=== PATIENT | male | born 1975 | race Caucasian/White ===

== ENCOUNTER 2022-11-22 12:37 | Emergency (ER) | payer BC ==
[2022-11-22 13:19] VITALS: PULSE 92; RESP 18; TEMP 97; O2SAT 93
[2022-11-22] MEDS ORDERED: Sodium Chloride 0.9% 1000 ML 1,000 ML ONE ×2 (13:28→14:40)
--- NOTE | 2022-11-22 13:42 | XRAY ---
Indication: Short of breath. Illness. Comparison: None Portable chest inflated and clear. Heart not enlarged for AP portable technique. Bony thorax intact with mild degenerative changes. Impression: Nonacute chest.
[2022-11-22] MEDS: Sodium Chloride 0.9% 1000 ML 1,000 ML IV STA ×2 (13:45→14:44)
[2022-11-22 13:55] LABS: Absolute Neutrophil Ct (ANC) 8.12 x10^3/uL (1.4-6.9); BASOPHIL % 0.4 % (0.0-0.4); Basophil (Absolute #) 0.04 x10^3/uL (0-0.4); Eosinophil % 0.5 % (0.00-5.0); Eosinophil (Absolute #) 0.05 x10^3/uL (0-0.5); Hematocrit 38.2 % (42-50); Hemoglobin 12.5 g/dL (12.5-18.0); IMMATURE GRAN # 0.15 x10^3u/L (0.00-0.03); IMMATURE GRAN % 1.4 % (0.00-0.4); Lymphocyte (Absolute #) 1.06 x10^3/uL (1.0-4.6); Mean Corpuscular Hemoglobin 28.8 pg (26-32); Mean Corpuscular Hgb Concent. 32.7 g/dL (32-36); Mean Platelet Volume 8.9 fL (7.5-11.0); Monocyte (Absolute #) 1.13 x10^3/uL (0.0-1.3); Monocytes % 10.7 % (0.0-12.0); Platelet Count 361 x10^3/uL (150-450); Red Blood Count 4.34 x10^6/uL (4.1-5.6); Red Cell Distribution Width 13.2 % (11.5-14.0); White Blood Count 10.6 x10^3/uL (4.0-10.5)
[2022-11-22] MEDS ORDERED: TORAdol 30 mg Injection ONE (13:57)
[2022-11-22 14:09] LABS: ALBUMIN 3.4 g/dL (3.5-5.0); ALKALINE PHOSPHATASE 161 U/L (38-126); AMYLASE 51 U/L (30-110); BLOOD UREA NITROGEN 8 mg/dL (9-20); CHLORIDE 95 mmol/L (98-107); Calcium 8.9 mg/dL (8.4-10.2); Carbon Dioxide 29 mmol/L (22-30); Creatinine 1 0.86 mg/dL (0.66-1.25); EST GLOMERULAR FILTRATION RATE > 60.0 ML/MIN; Glucose 375 mg/dL (74-106); LIPASE 174 U/L (23-300); Potassium 3.5 mmol/L (3.5-5.1); SGOT/AST 36 U/L (17-59); SGPT/ALT 34 U/L (0-50); SODIUM 136 mmol/L (137-145); Total Protein 7.1 g/dL (6.3-8.2)
[2022-11-22] MEDS: TORAdol 30 mg Injection IV ONE (14:09)
[2022-11-22] MEDS ORDERED: CLINDAMYCIN-D5W 900 MG/50 ML*** 900 MG/50 ML BAG IV ONE (14:39)
[2022-11-22 14:41] LABS: INFLUENZA A NEGATIVE (NEGATIVE); INFLUENZA B NEGATIVE (NEGATIVE); RESPIRATORY SYNCTIAL VIRUS NEGATIVE (NEGATIVE); SARS-CoV-2 Xpert Express NEGATIVE (NEGATIVE)
[2022-11-22] MEDS: CLINDAMYCIN-D5W 900 MG/50 ML*** 900 MG/50 ML BAG IV STA (14:44)
[2022-11-22 15:01] LABS: Appearance Clear (Clear); Bacteria None Seen /HPF (None Seen); Bilirubin Negative (Negative); Blood Negative (Negative); Epithelial Cells Rare /HPF (None Seen); Glucose, Urine >=1000 mg/dL (Negative); Ketones 15 (Negative); Leukocyte Esterase Negative (Negative); Nitrite Negative (Negative); Protein,Urine Dip 300 (Negative); RBC 0-2 /HPF (0-5); Specific Gravity 1.025 (1.005-1.030)
[2022-11-22 15:04] LABS: ADD URINE CULTURE? NO (NO)
[2022-11-22 15:14] LABS: Amphetamine,Urine NEGATIVE (NEGATIVE); Barbiturate,Urine NEGATIVE (NEGATIVE); Benzodiazepine,Urine NEGATIVE (NEGATIVE); Cocaine,Urine NEGATIVE (NEGATIVE); Methadone,Urine NEGATIVE (NEGATIVE); Opiate,Urine NEGATIVE (NEGATIVE); PCP,Urine NEGATIVE (NEGATIVE); THC,Urine NEGATIVE (NEGATIVE)
--- NOTE | 2022-11-22 15:19 | ERPHSYRPT ---
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 PT did not have a themometer so unsure about fever though states his left le started swellin at that time with pain and redness noted. pt reports severe weakness and sob with ambulation since onset. Pt reprots seeing Dr. Jensen last Sunday tested for covid and flu both neg. Triage Nursing Assessment: PT arrives p/w/d resp easy a@ox3. PT notably weak with standing and walking. LLE red from mid kohli down to foot. pt reports pain is constant sharp tightness noted pain increases with palpation. Warmth noted with touch to LLE. Physician History: Patient is a 47-year-old white male who presents with 8 days of chills fever hot flashes and pain. He has been feeling especially bad he saw his family doctor had COVID and flu testing which was negative. He has longstanding bilateral l ower extremity lymphedema he also says he has been dizzy and occasionally having chest pain. His right leg is also been more swollen than usual and is hot to the touch and red. Timing/Duration: day(s) (8) Severity: moderate Modifying Factors: Improves With: movement Associated Symptoms: diaphoresis, chills, fever, rash Allergies/Adverse Reactions: codeine Allergy (Severe, Verified 11/22/22 13:55) Hives lisinopril Allergy (Severe, Verified 11/22/22 13:55) Anaphylactic Reaction Penicillins Allergy (Severe, Verified 11/22/22 13:55) Anaphylactic Reaction Home Medications: Atorvastatin Calcium 40 mg PO 11/22/22 [History] Celecoxib [Celebrex] 400 mg PO 11/22/22 [History] Dulaglutide [Trulicity] 0.75 mg SQ 11/22/22 [History] Duloxetine HCl 30 mg PO 11/22/22 [History] Hctz/Triamterene 25/37.5 mg [Maxzide 25MG] 1 PO 11/22/22 [History] Losartan Potassium 50 mg [Cozaar 50 MG] 50 mg PO DAILY 11/22/22 [History] Metformin HCl [Metformin ER Osmotic] 1,000 mg PO 11/22/22 [History] Metoprolol Succinate 25 mg PO 11/22/22 [History] Travel Risk - International Travel Have you traveled outside of the country in past 3 weeks: No - Coronavirus Screening Are you exhibiting any of the following symptoms?: No Close contact with a COVID-19 positive Pt in past 14-21 Days: No - Vaccine Status Have you recieved a Covid-19 vaccination: No - Review of Systems Constitutional: Fever, Chills, Night Sweats, Weakness Eyes: No Symptoms Ears, Nose, & Throat: No Symptoms Respiratory: No Cough, No Dyspnea Cardiac: No Chest Pain, No Edema, No Syncope Abdominal/Gastrointestinal: No Abdominal Pain, No Nausea, No Vomiting, No Diarrhea Genitourinary Symptoms: No Dysuria Musculoskeletal: No Back Pain, No Neck Pain Skin: Cellulitis (Right lower extremity), No Rash Neurological: Dizziness, Lethargy, Vertigo, No Focal Weakness, No Sensory Changes Psychological: No Symptoms Endocrine: No Symptoms All Other Systems: Reviewed and Negative - Past Medical History Pertinent Past Medical History: No Endocrine Medical History: Diabetes Type II GI Medical History: Hernia - Past Surgical History Past Surgical History: Yes Other Surgical History: hand x 2 left and umbilical hernia 2 operations unresolved - Social History Smoking Status: Never smoker - Nursing Vital Signs Nursing Vital Signs: Initial Vital Signs Temperature 97.0 F 11/22/22 12:37 Pulse Rate 92 H 11/22/22 12:37 Respiratory Rate 18 11/22/22 12:37 Blood Pressure 139/92 11/22/22 12:37 O2 Sat by Pulse Oximetry 93 L 11/22/22 12:37 Pain Scale Pain Intensity 8 - Physical Exam General Appearance: mild distress, alert Eye Exam: PERRL/EOMI, eyes nml inspection Ears, Nose, Throat Exam: normal ENT inspection, TMs normal, pharynx normal, moist mucous membranes Neck Exam: normal inspection, non-tender, supple, full range of motion Respiratory Exam: normal breath sounds, lungs clear, No respiratory distress Cardiovascular Exam: regular rate/rhythm, normal heart sounds, normal peripheral pulses Gastrointestinal/Abdomen Exam: soft, normal bowel sounds, No tenderness, No mass Back Exam: normal inspection, normal range of motion, No CVA tenderness, No vertebral tenderness Extremity Exam: normal range of motion, pelvis stable, inflammation (Cellulitis of the right lower extremity), other (Patient has bilateral lower extremity lymphedema) Neurologic Exam: alert, oriented x 3, cooperative, normal mood/affect, nml cerebellar function, nml station & gait, sensation nml, No motor deficits Skin Exam: normal color, warm, dry, No rash Lymphatic Exam: No adenopathy SpO2 Interpretation: normal SpO2: 93 O2 Delivery: Room Air - Course Nursing assessment & vital signs reviewed: Yes EKG Interpreted by Me: RATE (78), Sinus Rhythm, NORMAL AXIS, Non-specific ST Changes, Other (Nonspecific interventricular conduction delay) - Radiology Exams Chest X-ray Interpretation: Reviewed by me, Negative Ordered Tests: Active Orders 24 hr Category Date Time Status EKG-ER Only STAT Care 11/22/22 13:18 Active IV Insertion STAT Care 11/22/22 13:16 Active IV Insertion STAT Care 11/22/22 13:18 Active CHEST 1 VIEW (PORTABLE) Stat Exams 11/22/22 13:18 Completed AMYLASE Stat Lab 11/22/22 13:16 Completed BLOOD CULTURE Stat Lab 11/22/22 13:47 Received CBC W DIFF Stat Lab 11/22/22 13:35 Completed CMP Stat Lab 11/22/22 13:16 Completed LIPASE Stat Lab 11/22/22 13:16 Completed Lactic Acid Stat Lab 11/22/22 13:39 Completed SED RATE [Erythrocyte Sedimentation Rate] Stat Lab 11/22/22 13:35 Completed UA W/RFX UR CULTURE Stat Lab 11/22/22 14:57 Completed Urine Triage Profile Stat Lab 11/22/22 14:57 Completed Medication Summary Discontinued Medications Generic Name Dose Route Start Last Admin Trade Name Jose C PRN Reason Stop Dose Admin Sodium Chloride 1,000 mls @ 999 mls/hr 11/22/22 13:18 11/22/22 14:44 Sodium Chloride 0.9% 1000 Ml IV 11/22/22 14:18 999 mls/hr .Q1H1M STA Administration Sodium Chloride 1,000 mls @ 999 mls/hr 11/22/22 13:16 11/22/22 14:56 Sodium Chloride 0.9% 1000 Ml IV 11/22/22 14:16 Infused .Q1H1M STA Infusion Sodium Chloride Confirm 11/22/22 13:28 Sodium Chloride 0.9% 1000 Ml Administered 11/22/22 13:29 Dose 1,000 mls @ ud .ROUTE .STK-MED ONE Clindamycin HCl/Dextrose 900 mg in 50 mls @ 100 mls/hr 11/22/22 14:37 11/22/22 14:44 Clindamycin-D5w 900 Mg/50 Ml IV 11/22/22 15:06 100 mls/hr STAT STA 100 mls/hr Administration Clindamycin HCl/Dextrose Confirm 11/22/22 14:39 Clindamycin-D5w 900 Mg/50 Ml Administered 11/22/22 14:40 Dose 900 mg in 50 mls @ ud IV .STK-MED ONE Sodium Chloride Confirm 11/22/22 14:40 Sodium Chloride 0.9% 1000 Ml Administered 11/22/22 14:41 Dose 1,000 mls @ ud .ROUTE .STK-MED ONE Ketorolac Tromethamine 30 mg 11/22/22 13:54 11/22/22 14:09 Ketorolac Tromethamine 30 Mg/Ml Inj IV 11/22/22 13:55 30 mg STAT ONE Administration Ketorolac Tromethamine Confirm 11/22/22 13:57 Ketorolac Tromethamine 30 Mg/Ml Inj Administered 11/22/22 13:58 Dose 30 mg .ROUTE .STK-MED ONE Lab/Rad Data: Laboratory Result Diagrams 11/22/22 13:35 11/22/22 13:16 Laboratory Results 11/22/22 11/22/22 11/22/22 Range/Units 14:57 14:57 13:50 WBC (4.0-10.5) x10^3/uL RBC (4.1-5.6) x10^6/uL Hgb (12.5-18.0) g/dL Hct (42-50) % MCV (78-100) fL MCH (26-32) pg MCHC (32-36) g/dL RDW (11.5-14.0) % Plt Count (150-450) x10^3/uL MPV (7.5-11.0) fL Gran % (36.0-66.0) % Immature Gran % (Auto) (0.00-0.4) % Nucleat RBC Rel Count (0.00-0.1) % Eos # (Auto) (0-0.5) x10^3/uL Immature Gran # (Auto) (0.00-0.03) x10^3u/L Absolute Lymphs (auto) (1.0-4.6) x10^3/uL Absolute Monos (auto) (0.0-1.3) x10^3/uL Absolute Nucleated RBC (0.00-0.01) x10^3u/L Lymphocytes % (24.0-44.0) % Monocytes % (0.0-12.0) % Eosinophils % (0.00-5.0) % Basophils % (0.0-0.4) % Absolute Granulocytes (1.4-6.9) x10^3/uL Basophils # (0-0.4) x10^3/uL ESR (0-15) mm/hr Sodium (137-145) mmol/L Potassium (3.5-5.1) mmol/L Chloride (98-107) mmol/L Carbon Dioxide (22-30) mmol/L Anion Gap (5-15) MEQ/L BUN (9-20) mg/dL Creatinine (0.66-1.25) mg/dL Estimated GFR ML/MIN Glucose (74-106) mg/dL Lactic Acid (0.4-2.0) Calcium (8.4-10.2) mg/dL Total Bilirubin (0.2-1.3) mg/dL AST (17-59) U/L ALT (0-50) U/L Alkaline Phosphatase (38-126) U/L Serum Total Protein (6.3-8.2) g/dL Albumin (3.5-5.0) g/dL Amylase (30-110) U/L Lipase (23-300) U/L Urine Color Dark Yellow (Yellow) Urine Appearance Clear (Clear) Urine pH 6.0 (4.6-8.0) Ur Specific [place] 1.025 (1.005-1.030) Urine Protein 300 A (Negative) Urine Glucose (UA) >=1000 A (Negative) mg/dL Urine Ketones 15 A (Negative) Urine Blood Negative (Negative) Urine Nitrite Negative (Negative) Urine Bilirubin Negative (Negative) Urine Urobilinogen 1.0 A (0.2) mg/dL Ur Leukocyte Esterase Negative (Negative) U Hyaline Cast (Auto) 3-5 A (0-2) /LPF Urine Microscopic RBC 0-2 (0-5) /HPF Urine Microscopic WBC 6-10 A (0-5) /HPF Ur Epithelial Cells Rare (None Seen) /HPF Urine Bacteria None Seen (None Seen) /HPF Urine Culture Reflexed NO (NO) Urine Opiates Level NEGATIVE (NEGATIVE) Ur Methadone NEGATIVE (NEGATIVE) Urine Barbiturates NEGATIVE (NEGATIVE) Ur Phencyclidine (PCP) NEGATIVE (NEGATIVE) Urine Amphetamine NEGATIVE (NEGATIVE) U Benzodiazepine Level NEGATIVE (NEGATIVE) Urine Cocaine NEGATIVE (NEGATIVE) Urine Marijuana (THC) NEGATIVE (NEGATIVE) Influenza Type A Ag NEGATIVE (NEGATIVE) Influenza Type B Ag NEGATIVE (NEGATIVE) RSV (PCR) NEGATIVE (NEGATIVE) SARS-CoV-2 (PCR) NEGATIVE (NEGATIVE) 11/22/22 11/22/22 11/22/22 Range/Units 13:39 13:35 13:35 WBC 10.6 H (4.0-10.5) x10^3/uL RBC 4.34 (4.1-5.6) x10^6/uL Hgb 12.5 (12.5-18.0) g/dL Hct 38.2 L (42-50) % MCV 88.0 (78-100) fL MCH 28.8 (26-32) pg MCHC 32.7 (32-36) g/dL RDW 13.2 (11.5-14.0) % Plt Count 361 (150-450) x10^3/uL MPV 8.9 (7.5-11.0) fL Gran % 77.0 H (36.0-66.0) % Immature Gran % (Auto) 1.4 H (0.00-0.4) % Nucleat RBC Rel Count 0.0 (0.00-0.1) % Eos # (Auto) 0.05 (0-0.5) x10^3/uL Immature Gran # (Auto) 0.15 H (0.00-0.03) x10^3u/L Absolute Lymphs (auto) 1.06 (1.0-4.6) x10^3/uL Absolute Monos (auto) 1.13 (0.0-1.3) x10^3/uL Absolute Nucleated RBC 0.00 (0.00-0.01) x10^3u/L Lymphocytes % 10.0 L (24.0-44.0) % Monocytes % 10.7 (0.0-12.0) % Eosinophils % 0.5 (0.00-5.0) % Basophils % 0.4 (0.0-0.4) % Absolute Granulocytes 8.12 H (1.4-6.9) x10^3/uL Basophils # 0.04 (0-0.4) x10^3/uL ESR 82 H (0-15) mm/hr Sodium (137-145) mmol/L Potassium (3.5-5.1) mmol/L Chloride (98-107) mmol/L Carbon Dioxide (22-30) mmol/L Anion Gap (5-15) MEQ/L BUN (9-20) mg/dL Creatinine (0.66-1.25) mg/dL Estimated GFR ML/MIN Glucose (74-106) mg/dL Lactic Acid 1.2 (0.4-2.0) Calcium (8.4-10.2) mg/dL Total Bilirubin (0.2-1.3) mg/dL AST (17-59) U/L ALT (0-50) U/L Alkaline Phosphatase (38-126) U/L Serum Total Protein (6.3-8.2) g/dL Albumin (3.5-5.0) g/dL Amylase (30-110) U/L Lipase (23-300) U/L Urine Color (Yellow) Urine Appearance (Clear) Urine pH (4.6-8.0) Ur Specific [place] (1.005-1.030) Urine Protein (Negative) Urine Glucose (UA) (Negative) mg/dL Urine Ketones (Negative) Urine Blood (Negative) Urine Nitrite (Negative) Urine Bilirubin (Negative) Urine Urobilinogen (0.2) mg/dL Ur Leukocyte Esterase (Negative) U Hyaline Cast (Auto) (0-2) /LPF Urine Microscopic RBC (0-5) /HPF Urine Microscopic WBC (0-5) /HPF Ur Epithelial Cells (None Seen) /HPF Urine Bacteria (None Seen) /HPF Urine Culture Reflexed (NO) Urine Opiates Level (NEGATIVE) Ur Methadone (NEGATIVE) Urine Barbiturates (NEGATIVE) Ur Phencyclidine (PCP) (NEGATIVE) Urine Amphetamine (NEGATIVE) U Benzodiazepine Level (NEGATIVE) Urine Cocaine (NEGATIVE) Urine Marijuana (THC) (NEGATIVE) Influenza Type A Ag (NEGATIVE) Influenza Type B Ag (NEGATIVE) RSV (PCR) (NEGATIVE) SARS-CoV-2 (PCR) (NEGATIVE) 11/22/22 Range/Units 13:16 WBC (4.0-10.5) x10^3/uL RBC (4.1-5.6) x10^6/uL Hgb (12.5-18.0) g/dL Hct (42-50) % MCV (78-100) fL MCH (26-32) pg MCHC (32-36) g/dL RDW (11.5-14.0) % Plt Count (150-450) x10^3/uL MPV (7.5-11.0) fL Gran % (36.0-66.0) % Immature Gran % (Auto) (0.00-0.4) % Nucleat RBC Rel Count (0.00-0.1) % Eos # (Auto) (0-0.5) x10^3/uL Immature Gran # (Auto) (0.00-0.03) x10^3u/L Absolute Lymphs (auto) (1.0-4.6) x10^3/uL Absolute Monos (auto) (0.0-1.3) x10^3/uL Absolute Nucleated RBC (0.00-0.01) x10^3u/L Lymphocytes % (24.0-44.0) % Monocytes % (0.0-12.0) % Eosinophils % (0.00-5.0) % Basophils % (0.0-0.4) % Absolute Granulocytes (1.4-6.9) x10^3/uL Basophils # (0-0.4) x10^3/uL ESR (0-15) mm/hr Sodium 136 L (137-145) mmol/L Potassium 3.5 (3.5-5.1) mmol/L Chloride 95 L (98-107) mmol/L Carbon Dioxide 29 (22-30) mmol/L Anion Gap 15.0 (5-15) MEQ/L BUN 8 L (9-20) mg/dL Creatinine 0.86 (0.66-1.25) mg/dL Estimated GFR > 60.0 ML/MIN Glucose 375 H (74-106) mg/dL Lactic Acid (0.4-2.0) Calcium 8.9 (8.4-10.2) mg/dL Total Bilirubin 1.20 (0.2-1.3) mg/dL AST 36 (17-59) U/L ALT 34 (0-50) U/L Alkaline Phosphatase 161 H (38-126) U/L Serum Total Protein 7.1 (6.3-8.2) g/dL Albumin 3.4 L (3.5-5.0) g/dL Amylase 51 (30-110) U/L Lipase 174 (23-300) U/L Urine Color (Yellow) Urine Appearance (Clear) Urine pH (4.6-8.0) Ur Specific [place] (1.005-1.030) Urine Protein (Negative) Urine Glucose (UA) (Negative) mg/dL Urine Ketones (Negative) Urine Blood (Negative) Urine Nitrite (Negative) Urine Bilirubin (Negative) Urine Urobilinogen (0.2) mg/dL Ur Leukocyte Esterase (Negative) U Hyaline Cast (Auto) (0-2) /LPF Urine Microscopic RBC (0-5) /HPF Urine Microscopic WBC (0-5) /HPF Ur Epithelial Cells (None Seen) /HPF Urine Bacteria (None Seen) /HPF Urine Culture Reflexed (NO) Urine Opiates Level (NEGATIVE) Ur Methadone (NEGATIVE) Urine Barbiturates (NEGATIVE) Ur Phencyclidine (PCP) (NEGATIVE) Urine Amphetamine (NEGATIVE) U Benzodiazepine Level (NEGATIVE) Urine Cocaine (NEGATIVE) Urine Marijuana (THC) (NEGATIVE) Influenza Type A Ag (NEGATIVE) Influenza Type B Ag (NEGATIVE) RSV (PCR) (NEGATIVE) SARS-CoV-2 (PCR) (NEGATIVE) - Progress Progress: unchanged Medical Desision Making - Diagnostic Testing Diagnostic test were ordered, analyzed, and reviewed by me: Yes Radiological Interpretation: Reviewed by me - Risk of complications The pt has a mod risk of morbidity or mortality based on: Need for prescription drug management - Departure Departure Disposition: Home Clinical Impression: Cellulitis of right leg Condition: Stable Critical Care Time: No Referrals: DOCTOR,NO FAMILY [Primary Care Provider] - Follow up/PCP as directed Instructions: Cellulitis (Skin Infection), Adult (DC) Prescriptions: Smz/Tmp Ds Tablet [Bactrim Ds Tablet] 1 udtab PO BID 10 Days #20 tablet clindamycin HCL [Cleocin HCl] 300 mg PO TID 10 Days #30 cap
[2022-11-22 15:53] VITALS: BP 135/63
== END 2022-11-22 15:58 | disposition home or self-care (01) ==
LOC: ED 12:37
DX: L03.115 Cellulitis of right lower limb (principal); R50.9 Fever, unspecified; R42 Dizziness and giddiness; R07.9 Chest pain, unspecified; E11.9 Type 2 diabetes mellitus without complications; Z79.85 Long-term (current) use of injectable non-insulin antidiabetic drugs; Z79.84 Long term (current) use of oral hypoglycemic drugs; Z79.899 Other long term (current) drug therapy; Z28.310 Unvaccinated for COVID-19
CPT/HCPCS: 0241U; 36415; 71045; 80053; 80307; 81001; 82150; 83605; 83690; 85025; 85652; 86140; 87040; 93005; 96360; 96361; 96374; 96375; 96376; 99284; J1885